=== PATIENT | male | born 1990 | race Hispanic/Latino ===

== ENCOUNTER 2024-08-14 23:23 | Emergency (ER) | payer BC, SELFPAY ==
[~2024-08-14] VITALS: Ht 175.3 cm; Wt 81.6 kg
[2024-08-15] MEDS: LIDOCAINE HCL 1% 20 ML VIAL ONE
[2024-08-15] MEDS: LIDOCAINE HCL 1% 20 ML VIAL INJ SCH (00:02)
[2024-08-15] MEDS ORDERED: SULF1TAB42 PO (00:04)
[2024-08-15] MEDS: cefTRIAXone 1G VIAL IM ONE (00:24)
[2024-08-15 00:25] VITALS: BP 124/67; PULSE 84; RESP 18; TEMP 98.1; O2SAT 98
== END 2024-08-15 00:29 | disposition home or self-care (01) ==
LOC: EDH 23:23
DX: L02.811 Cutaneous abscess of head [any part, except face] (principal)
CPT/HCPCS: 99284; 10060; 96372; J0696; 96374